=== PATIENT | female | born 1980 | race Hispanic/Latino ===

== ENCOUNTER 2018-05-01 17:15 | Emergency (ER) | payer SELFPAY ==
[~2018-05-01] VITALS: Ht 152.4 cm; Wt 84.1 kg
[2018-05-01] MEDS ORDERED: CIPRODEX OTIC7.5 ML LEFT EAR (18:35)
[2018-05-01] MEDS ORDERED: CHLORASEPTIC177 ML MM (18:35)
[2018-05-01 18:42] VITALS: BP 129/84
== END 2018-05-01 19:08 | disposition home or self-care (01) ==
LOC: EME 17:15
DX: H66.92 Otitis media, unspecified, left ear (principal); J02.9 Acute pharyngitis, unspecified; R50.9 Fever, unspecified; Z88.0 Allergy status to penicillin
CPT/HCPCS: 99281; 99283